=== PATIENT | female | born 2000 ===

== ENCOUNTER → 2020-08-29 | Outpatient (CLI) | payer SELFPAY ==
[~2020-08-29] MED LIST: COVID-19 VACCINE (PFIZER)/PF 30 MCG/0.3 ML VIAL IM ONE; EPINEPHRINE INJ/PF 1 MG/1 ML AMPULE IM PRN
--- OUTSIDE RECORDS SUMMARY | 2020-08-29 07:34 | XMS REPORT ---
:2000 Author Organization [facility] Address [address] [address] Care Team Providers Name Role Phone Unavailable Unavailable Unavailable Allergies, Adverse Reactions, Alerts This patient has no known allergies or adverse reactions. Medications Ordered Filled Start Stop Current Ordering Indication Dosage Frequency Signature Comments Components Medication Medication Date Date Medication? Clinician (SIG) Name Name PreviDent No PreviDent 5000 5000 Booster Booster Plus 1.1 % Plus 1.1 % dental dental paste APPLY paste PEA SIZE APPLY PEA AMOUNT TO SIZE TOOTHBRUSH AMOUNT TO AT BEDTIME TOOTHBRUSH GENTLY AT BEDTIME BRUSH TEETH GENTLY SPIT OUT BRUSH EXCESS. DO TEETH SPIT NOT RINSE OUT NOR EAT OR EXCESS. DO DRINK FOR NOT RINSE 30 MINUTES NOR EAT OR AFTER USE; DRINK FOR P 30 MINUTES AFTER USE; P Problems This patient has no known problems. Procedures Procedure Date / Time Performed Performing Clinician Velia meza pulse oximetry (PROC) 2020-08-07 00:00:00 pulse oximetry (PROC) 2020-05-08 00:00:00 Results This patient has no known results. Assessments Condition Name Status Diagnosis Date Treating Clinici an Exposure to SARS-CoV-2 Active 2020-08-07 09:13:18 Viral screening Active 2020-05-23 21:33:59 Encounters Start End Encounter Admission Attending Care Care Encounter Date/Time Date/Time Type Type Clinicians Facility Department ID 2020-08-07 2020-08-07 Sandy Mendoza [facility] [id number] 00:00:00 00:00:00 SOWMYA Patrick: [facility] Im[facility] & [id number] [place] [address], Ph. 2020-05-08 2020-05-08 Gil Mendoza [facility] [id number] 00:00:00 00:00:00 SOWMYA Velazquez: Immediate Immediate & [phone] [place] [address], Ph. Social History Smoking Status Start Date Stop Date Never Smoker Vital Signs Vital Name Observation Time Observation Value Comments Height 2020-08-07 00:00:00 66 [in_i] BMI (Body Mass Index) 2020-08-07 00:00:00 21.8 kg/m2 Body Weight 2020-08-07 00:00:00 135 [lb_av] Height 2020-05-08 00:00:00 66 [in_i] BMI (Body Mass Index) 2020-05-08 00:00:00 21.8 kg/m2 Body Weight 2020-05-08 00:00:00 135 [lb_av] Hospital Discharge Instructions 1. Exposure to SARS-CoV-2 pulse oximetry (PROC) rapid SARS CoV 2 Ag, QL IA, respiratory specimen 9 things to do if you've been exposed to covid-19 Discussion Note Follow up with PCP in 1 week or sooner for new/worsening symptoms. All pt. questions and concerns were addressed and answered. Pt. verbalized understanding and agreement of treatment plan. This was an Urgent Care Visit. Quality measures managed by PCP.1. Viral screening pulse oximetry (PROC) rapid SARS CoV 2 Ag, QL IA, respiratory specimen Discussion Note UC visit curbside 5 minutes with new patient Patient educational handouts: No information available.
== END ==
LOC: EMPHEALTH 07:29
PROVIDERS: ATTEND Internal Medicine
DX: Z23 Encounter for immunization (principal)
CPT/HCPCS: 91300